=== PATIENT | male | born 1980 | race Caucasian/White ===

== ENCOUNTER 2017-11-10 09:31 | Emergency (ER) | payer BC, OTHER ==
[2017-11-10 09:43] VITALS: BP 116/71
[2017-11-10] MEDS ORDERED: Ondansetron ODT TAB* 4 MG PO ONE (11:06)
--- NOTE | 2017-11-10 11:31 | RAD ---
HISTORY: body aches, fever, body aches, mild cough COMPARISONS: None VIEWS: 4: Frontal dual-energy and lateral views of the chest. FINDINGS: CARDIOMEDIASTINAL SILHOUETTE: The cardiomediastinal silhouette is normal. LISA: The lisa are normal. PLEURA: The costophrenic angles are sharp. No pleural abnormalities are noted. LUNG PARENCHYMA: The lungs are clear. ABDOMEN: The upper abdomen is clear. There is no subphrenic gas. BONES AND SOFT TISSUES: No bone or soft tissue abnormalities are noted. OTHER: None. IMPRESSION: NO ACTIVE CARDIOPULMONARY DISEASE.
--- NOTE | 2017-11-21 15:00 | UC ---
Marya Farmer Tenzin, scribed for Ivett Lew MD on 11/10/17 at 0952 . General HPI - HPI Summary HPI Summary: Pt is a 37 years old male presenting to the complaining of general malaise that started with nausea and fever since two days ago. Pt is also complaining of REEVES, emesis, diarrhea, little coughs, abdomen discomfort as "gasey" and lower and upper back pain. Pt rates the pain at 4/10 in severity and describes it as aching. Pt has difficulty eating and drinking from feeling nauseous. Pt took Advil and Ibuprofen for fever and pain for the last two days and took some this morning at 2:30. He notes that he only had a apple sauce this morning. Denies change in urination, no blood in stools, pain in rectum during urination, ear pain, sore throat. Pt is not on any medication right now. He is not allergic to any medications. No aggravating factors were noted. Pt does not smoke but drinks occasionally. He notes that he just got back from [place]. Pt's medications reviewed this visit - History of Current Complaint Chief Complaint: UCGeneralIllness Stated Complaint: VOMITING FEVER LOWER BACK PAIN Hx Obtained From: Patient Onset/Duration: Lasting Days - four days ago., Still Present Current Severity: Mild Pain Intensity: 4 Associated Signs & Symptoms: Positive: Diarrhea, Fever, Nausea, Vomiting, Other - Lower back pain.. Negative: Dysuria - Allergy/Home Medications Allergies/Adverse Reactions: Allergies Allergy/AdvReac Type Severity Reaction Status Date / Time No Known Allergies Allergy Verified 11/10/17 09:43 PMH/Surg Hx/FS Hx/Imm Hx - Additional Past Medical History Additional PMH: NEGATIVE: [place] CVA Previously Healthy: Yes - Surgical History Surgical History: None - Family History Known Family History: Positive: None - Denies heart disease/DM Negative: Cardiac Disease, Diabetes - Social History Alcohol Use: Occasionally Substance Use Type: None Smoking Status (MU): Never Smoked Tobacco Review of Systems Constitutional: Fever Skin: Negative Eyes: Negative ENT: Negative, Other - NEGATIVE: sore throat, ear ache. Respiratory: Cough - little coughs. Cardiovascular: Negative Gastrointestinal: Abdominal Pain - abdomen discomfort "gasey", Vomiting, Diarrhea, Nausea Genitourinary: Negative Motor: Negative Neurovascular: Negative Musculoskeletal: Other: - POSTIVE: lower and upper back pain. Neurological: Headache - headache around the catholic area. Psychological: Negative All Other Systems Reviewed And Are Negative: Yes Physical Exam - Summary Physical Exam Summary: Vital Signs Reviewed: Yes A+Ox3, no distress, tired appearing Eyes: Conjunctiva Clear, FAMILIA. EOM intact and full ENT: Hearing grossly normal TM x 2 clear, mmoist, uvula midline, no exudate, no erythema Neck: Positive: Supple Respiratory: Positive: No respiratory distress, No accessory muscle use + CTA throughout no w/r intermittent cough Cardiovascular: RRR nl s1, s2 no m/r CBT <2 sec abd soft + BS nt/nd no guarding, no distension no CVA Musculoskeletal Exam: GROVER x 4 without difficulty Strength Intact, ROM Intact Neurological: Positive: Alert, + sensation throughout Psychological: Positive: Normal Response To Family Skin: Positive: no rash, no ecchymosis Triage Information Reviewed: Yes Vital Signs: Initial Vital Signs Temp 98.5 F 11/10/17 09:40 Pulse 80 11/10/17 09:40 Resp 18 11/10/17 09:40 BP 116/71 11/10/17 09:40 Pulse Ox 100 11/10/17 09:40 Diagnostics - Radiology CHEST X RAY Radiology Interpretation Completed By: Radiologist - IMPRESSION: NO ACTIVE CARDIOPULMONARY DISEASE. Re-Evaluation - Re-Evaluation First Eval Comment: reviewed urine and cxr. pt tolerating water after zofran. clears to bland. cxr neg. rest. return precautions Course/Dx - Course Course Of Treatment: Pt presents with several days n/v/d Pt reports fevers, improved with antipyretic. No sick contact, abx. + recent travel. Pt also with cough. will check CXR, urine for ketone. will give zofran and po challenge. pt comfortable and in agreement with plan - Differential Dx - Multi-Symptom Provider Diagnoses: vomiting. diarrhea Discharge - Sign-Out/Discharge Documenting (check all that apply): Discharge/Admit/Transfer - Discharge Plan Condition: Stable Disposition: HOME Prescriptions: Ondansetron ODT TAB* [Zofran 4 MG Odt TAB*] 4 mg PO Q6H PRN #12 tab.odt PRN Reason: Nausea Patient Education Materials: Acute Nausea and Vomiting (ED), Acute Diarrhea (ED ) Referrals: No Primary Care Phys,NOPCP [Primary Care Provider] - Additional Instructions: - Okay to alternate ibuprofen (Advil, Motrin)600mg and Tylenol 1000mg every 3 hours for pain or fever. Take with food. Do NOT take for more than 4-5 days. - Take medication as prescribed for nausea - For the first 6 hours, eat and drink clears (water, raymon addy, soup broth, jello, popsicles, Gatorade). If you tolerate this okay, add bland foods such as dry toast, scrambled eggs, crackers. Wait until you are feeling better for 24 hours before eating spicy food, acidic food, tomato based food, fried food. - Get plenty of restful sleep - once you start to feel better - change your toothbrush and bed linens. Do not share eating or drinking untensils -if you develop uncontrolled fevers, pain, rash, are unable to keep fluids down or any other concerns it is recommended you go to the emergency department for further evaluation and treatment. - - Billing Disposition and Condition Condition: STABLE Disposition: Home The documentation as recorded by the Marya keene Tenzin accurately reflects the service I personally performed and the decisions made by me, Ivett Lew MD.
== END 2017-11-10 12:00 | disposition home or self-care (01) ==
LOC: UCEAST 09:31
DX: R11.2 Nausea with vomiting, unspecified (principal); R19.7 Diarrhea, unspecified; R53.81 Other malaise; R50.9 Fever, unspecified; M54.5 Low back pain; R51 Headache; R05 Cough
CPT/HCPCS: 71046; 81003; 99212; A9270-GY; G0463

== ENCOUNTER 2017-11-11 20:10 | Emergency (ER) | payer BC ==
[2017-11-12] MEDS ORDERED: Ketorolac INJ* 30 MG/ML 1 ML VIAL IV PUSH ONE (00:51)
[2017-11-12] MEDS ORDERED: Dexamethasone IV* 8 MG in NS 0.9% 50 ML* 50 ML IVPB ONE (00:51)
[2017-11-12] MEDS ORDERED: NS 0.9% 1000 ML* 1,000 ML IV ONE (01:14)
[2017-11-12 01:29] LABS: ABS Basophils 0 10^3/ul (0-0.2); ABS Eosinophils 0 10^3/ul (0-0.6); ABS Lymphocytes 0.5 10^3/ul (1.0-4.8); ABS Monocytes 0.3 10^3/ul (0-0.8); ABS Neutrophils 7.7 10^3/ul (1.5-7.7); ABS Nucleated RBC 0 10^3/ul; Eosinophil % 0 % (0-6); Hematocrit 46 % (42-52); Hemoglobin 16.1 g/dl (14.0-18.0); Lymphocyte % 5.5 % (25-47); Mean Corpuscular HGB Conc 35 g/dl (31-36); Mean Corpuscular Hemoglobin 32 pg (27-31); Mean Corpuscular Volume 92 fL (80-94); Mean Platelet Volume 7.8 um3 (7.4-10.4); Nucleated Red Blood Cells % 0; Platelet Count 169 10^3/ul (150-450); Red Blood Count 4.97 10^6/ul (4.00-5.40); Red Cell Distribution Width 13 % (10.5-15); White Blood Count 8.6 10^3/ul (3.5-10.8)
[2017-11-12 01:50] LABS: EGFR Non-African American 72.3 (>60)
[2017-11-12 02:25] LABS: Urine Appearance Cloudy; Urine Blood 2+ (Negative); Urine Color Yellow; Urine Ketones 2+ (Negative); Urine Protein 1+(30 mg/dL) (Negative); Urine Specific Gravity 1.034 (1.010-1.030); Urine Urobilinogen Negative (Negative)
[2017-11-12 05:17] VITALS: BP 98/60
--- NOTE | 2017-11-12 05:53 | ED ---
Carlos Farmer Tariq, scribed for Marlen Dey MD on 11/12/17 at 0102 . Throat Pain/Nasal Congestion - HPI Summary HPI Summary: A 37 y/o male presents to ED c/o sore gums, tooth pain and sore throat. Additionally c/o diffuse abdominal pain. Starting Tuesday night (5 days ago). As per family, pt has had ingestion issues and N/V/D for the past couple days. The pt stated that he could not eat and has not eaten much since onset. If anything , he eats apple sauce and other soft foods. The pt noted travel to [place], no possibility for tick. No previous health conditions he can think of. No PCP. - History of Current Complaint Chief Complaint: EDFever Time Seen by Provider: 11/11/17 23:21 Hx Obtained From: Patient Onset/Duration: Sudden Onset, Lasting Days, Still Present Severity: Severe Cough: None - Allergies/Home Medications Allergies/Adverse Reactions: Allergies Allergy/AdvReac Type Severity Reaction Status Date / Time No Known Allergies Allergy Verified 11/10/17 09:43 PMH/Surg Hx/FS Hx/Imm Hx Cardiovascular History: Denies: Other Cardiovascular Problems/Disorders History: Reports: Hx Kidney Stones Infectious Disease History: No Infectious Disease History: Denies: Traveled Outside the [place] in Last 30 Days - Family History Known Family History: Positive: Other - NEGATIVE: Heart disease Negative: Diabetes - Social History Alcohol Use: Occasionally Hx Substance Use: No Substance Use Type: Reports: None Hx Tobacco Use: No Smoking Status (MU): Never Smoked Tobacco Review of Systems Positive: Fever Positive: Dental Pain, Sore Throat, Other - POSITIVE: Sore gums Positive: Abdominal Pain - Diffuse, Vomiting, Diarrhea, Nausea, Other - POSITIVE : Ingestion issues All Other Systems Reviewed And Are Negative: Yes Physical Exam - Summary Physical Exam Summary: GENERAL: Patient is a well developed and nourished male who is lying comfortable in the stretcher. Patient is not in any acute respiratory distress. HEAD AND FACE: Normocephalic EYES: PERRLA, EOMI x 2. EARS: Hearing grossly intact. MOUTH: Oropharynx within normal limits. Throat erythematous. NECK: Supple, trachea is midline, no adenopathy, no JVD, no carotid bruit. CHEST: Symmetric, no tenderness at palpation LUNGS: Clear to auscultation bilaterally. No wheezing or crackles. CVS: Regular rate and rhythm, S1 and S2 present, no murmurs or gallops appreciated. ABDOMEN: Soft, non-tender. Bowel sounds are normal. No abdominal abnormal pulsations. EXTREMITIES: Full ROM in all major joints, no edema, no cyanosis or clubbing. NEURO: Alert and oriented x 3. No acute neurological deficits. Speech is normal and follows commands. SKIN: Dry and warm Neuro exam extended: Cranial nerves II-XII grossly intact, no dysmetria finger to nose, nml heel to kim Triage Information Reviewed: Yes Vital Signs On Initial Exam: Initial Vitals Temp Pulse Resp BP Pulse Ox 99.8 F 88 20 140/78 99 11/11/17 20:11 11/11/17 20:11 11/11/17 20:11 11/11/17 20:11 11/11/17 20:11 Vital Signs Reviewed: Yes Diagnostics - Vital Signs Vital Signs Temp Pulse Resp BP Pulse Ox 11/12/17 00:43 95 95 11/12/17 00:42 86 115/73 100 11/11/17 23:41 88 99 11/11/17 23:38 87 120/72 97 11/11/17 23:08 87 123/83 98 11/11/17 20:11 99.8 F 88 20 140/78 99 - Laboratory Lab Results: Lab Results 11/12/17 11/12/17 11/12/17 Range/Units 01:19 01:19 01:19 WBC 8.6 (3.5-10.8) 10^3/ul RBC 4.97 (4.00-5.40) 10^6/ul Hgb 16.1 (14.0-18.0) g/dl Hct 46 (42-52) % MCV 92 (80-94) fL MCH 32 H (27-31) pg MCHC 35 (31-36) g/dl RDW 13 (10.5-15) % Plt Count 169 (150-450) 10^3/ul MPV 7.8 (7.4-10.4) um3 Neut % (Auto) 90.2 H (38-83) % Lymph % (Auto) 5.5 L (25-47) % [place] % (Auto) 3.8 (0-7) % Eos % (Auto) 0 (0-6) % Baso % (Auto) 0.5 (0-2) % Absolute Neuts (auto) 7.7 (1.5-7.7) 10^3/ul Absolute Lymphs (auto) 0.5 L (1.0-4.8) 10^3/ul Absolute Monos (auto) 0.3 (0-0.8) 10^3/ul Absolute Eos (auto) 0 (0-0.6) 10^3/ul Absolute Basos (auto) 0 (0-0.2) 10^3/ul Absolute Nucleated RBC 0 10^3/ul Nucleated RBC % 0 ESR 30 H (0-14) mm/Hr Sodium 137 (135-145) mmol/L Potassium 3.6 (3.5-5.0) mmol/L Chloride 101 (101-111) mmol/L Carbon Dioxide 26 (22-32) mmol/L Anion Gap 10 (2-11) mmol/L BUN 13 (6-24) mg/dL Creatinine 1.14 (0.67-1.17) mg/dL Est GFR ( Amer) 87.5 (>60) Est GFR (Non-Af Amer) 72.3 (>60) BUN/Creatinine Ratio 11.4 (8-20) Glucose 111 H (70-100) mg/dL Lactic Acid 1.3 (0.5-2.0) mmol/L Calcium 9.0 (8.6-10.3) mg/dL Total Bilirubin 0.80 (0.2-1.0) mg/dL AST 43 H (13-39) U/L ALT 39 (7-52) U/L Alkaline Phosphatase 64 (34-104) U/L Total Protein 7.3 (6.4-8.9) g/dL Albumin 4.1 (3.2-5.2) g/dL Globulin 3.2 (2-4) g/dL Albumin/Globulin Ratio 1.3 (1-3) Urine Color Urine Appearance Urine pH (5-9) Ur Specific [place] (1.010-1.030) Urine Protein (Negative) Urine Ketones (Negative) Urine Blood (Negative) Urine Nitrate (Negative) Urine Bilirubin (Negative) Urine Urobilinogen (Negative) Ur Leukocyte Esterase (Negative) Urine WBC (Auto) (Absent) Urine RBC (Auto) (Absent) Urine Bacteria (Absent) Urine Glucose (Negative) Monoscreen Negative (Negative) Group A Strep Rapid (Negative) 11/12/17 11/12/17 Range/Units 02:10 02:18 WBC (3.5-10.8) 10^3/ul RBC (4.00-5.40) 10^6/ul Hgb (14.0-18.0) g/dl Hct (42-52) % MCV (80-94) fL MCH (27-31) pg MCHC (31-36) g/dl RDW (10.5-15) % Plt Count (150-450) 10^3/ul MPV (7.4-10.4) um3 Neut % (Auto) (38-83) % Lymph % (Auto) (25-47) % [place] % (Auto) (0-7) % Eos % (Auto) (0-6) % Baso % (Auto) (0-2) % Absolute Neuts (auto) (1.5-7.7) 10^3/ul Absolute Lymphs (auto) (1.0-4.8) 10^3/ul Absolute Monos (auto) (0-0.8) 10^3/ul Absolute Eos (auto) (0-0.6) 10^3/ul Absolute Basos (auto) (0-0.2) 10^3/ul Absolute Nucleated RBC 10^3/ul Nucleated RBC % ESR (0-14) mm/Hr Sodium (135-145) mmol/L Potassium (3.5-5.0) mmol/L Chloride (101-111) mmol/L Carbon Dioxide (22-32) mmol/L Anion Gap (2-11) mmol/L BUN (6-24) mg/dL Creatinine (0.67-1.17) mg/dL Est GFR ( Amer) (>60) Est GFR (Non-Af Amer) (>60) BUN/Creatinine Ratio (8-20) Glucose (70-100) mg/dL Lactic Acid (0.5-2.0) mmol/L Calcium (8.6-10.3) mg/dL Total Bilirubin (0.2-1.0) mg/dL AST (13-39) U/L ALT (7-52) U/L Alkaline Phosphatase (34-104) U/L Total Protein (6.4-8.9) g/dL Albumin (3.2-5.2) g/dL Globulin (2-4) g/dL Albumin/Globulin Ratio (1-3) Urine Color Yellow Urine Appearance Cloudy Urine pH 5.0 (5-9) Ur Specific [place] 1.034 H (1.010-1.030) Urine Protein 1+(30 mg/dl) A (Negative) Urine Ketones 2+ A (Negative) Urine Blood 2+ A (Negative) Urine Nitrate Negative (Negative) Urine Bilirubin Negative (Negative) Urine Urobilinogen Negative (Negative) Ur Leukocyte Esterase Negative (Negative) Urine WBC (Auto) Trace(0-5/hpf) (Absent) Urine RBC (Auto) 3+(>10/hpf) A (Absent) Urine Bacteria Absent (Absent) Urine Glucose Negative (Negative) Monoscreen (Negative) Group A Strep Rapid Negative (Negative) Result Diagrams: 11/12/17 01:19 11/12/17 01:19 Lab Statement: Any lab studies that have been ordered have been reviewed, and results considered in the medical decision making process. EENT Course/Dx - Course Course Of Treatment: 37-year-old male presenting to the emergency room again 5 days history of fevers, chills, cough, sore throat. Workup is unremarkable including a mono screen, rapid strep, UA. Patient had an x-ray that was performed yesterday at urgent care which shows no pneumonia. Patient given fluids, Decadron, Toradol and reports that them a lot better. Patient is hemodynamically stable and safe for discharge, strict return precautions and will otherwise follow up with his doctor. - Diagnoses Provider Diagnoses: Viral illness Discharge - Sign-Out/Discharge Documenting (check all that apply): Discharge/Admit/Transfer - Discharge - Discharge Plan Condition: Stable Disposition: HOME Prescriptions: Ketorolac TAB * [Toradol TAB *] 10 mg PO Q6H #20 tab Patient Education Materials: Viral Syndrome (ED) Forms: *Work Release Referrals: No Primary Care Phys,NOPCP [Primary Care Provider] - Additional Instructions: RETURN TO ED FOR ANY NEW OR WORSENING SYMPTOMS - Billing Disposition and Condition Condition: STABLE Disposition: Home The documentation as recorded by the Carlos keene Tariq accurately reflects the service I personally performed and the decisions made by me, Marlen Dey MD.
== END 2017-11-12 05:10 | disposition home or self-care (01) ==
LOC: ED 20:10
DX: B34.9 Viral infection, unspecified (principal)
CPT/HCPCS: 36415; 80053; 81003; 81015; 83605; 85025; 85652; 86308; 86618; 87040; 87086; 87651; 96361; 96374; 99284; J1100; J1885